=== PATIENT | male | born 1990 | race Caucasian/White ===

== ENCOUNTER 2016-11-19 03:14 | Emergency (ER) | payer OTHER ==
[2016-11-19] MEDS ORDERED: Ibuprofen 800 MG TAB ONE (03:31)
== END 2016-11-19 03:32 | disposition home or self-care (01) ==
LOC: BURERS 03:14
DX: K02.9 Dental caries, unspecified (principal); F31.9 Bipolar disorder, unspecified; F17.210 Nicotine dependence, cigarettes, uncomplicated
CPT/HCPCS: 99282

== ENCOUNTER 2016-11-27 13:28 | Emergency (ER) | payer OTHER | END 2016-11-27 14:13 | disposition home or self-care (01) | LOC: BURERS 13:28 | DX: K03.81 Cracked tooth (principal); F31.9 Bipolar disorder, unspecified; F17.210 Nicotine dependence, cigarettes, uncomplicated | CPT/HCPCS: 99282 ==